=== PATIENT | female | born 1980 | race Two or more races ===

== ENCOUNTER 2025-09-10 06:56 | Emergency (ER) | payer MEDICAID, OTHER ==
[~2025-09-10] VITALS: Ht 152.4 cm; Wt 50.3 kg
[2025-09-10] MEDS ORDERED: IBUP1TAB5 PO (07:45)
[2025-09-10] MEDS ORDERED: PRED20TA2 PO (07:45)
[2025-09-10] MEDS ORDERED: AZIT-43 PO (07:45)
[2025-09-10] MEDS ORDERED: PROM1SOL4 PO (07:45)
--- NOTE | 2025-09-10 07:45 | ED.PDOC ---
SOB-HPI HPI Comments See triage note Chief Complaint: Flu like Time Seen by MD: 07:18 Reviewed notes: Nurses Notes, Medications, Allergies Information Source: Patient Mode of Arrival: Ambulatory Physical Exam General Appearance: No Apparent Distress, Normal HEENT: Normal ENT Inspection, Pharynx Normal, TMs Normal Neck: Full Range of Motion, Non-Tender, Normal, Normal Inspection Respiratory: Chest Non-Tender, Lungs Clear, No Accessory Muscle Use, No Respiratory Distress, Normal Breath Sounds Cardiovascular: No Edema, No JVD, No Murmur, No Gallop, Normal Peripheral Pulses, Regular Rate/Rhythm Breast Exam: Deferred Gastrointestinal: No Organomegaly, Non Tender, No Pulsatile Mass, Normal Bowel Sounds, Soft Genitalia: Deferred Pelvic: Deferred Rectal: Deferred Extremities: No calf tenderness, Normal capillary refill, Normal inspection, Normal range of motion, Non-tender, No pedal edema Musculoskeletal : Apperance: Normal Neurologic: Alert, credit control clerk II-XII nml as Tested, No Motor Deficits, Normal Affect, Normal Mood, No Sensory Deficits Cerebellar Function: Normal Reflexes: Normal Skin: Dry, Normal Color, Warm Lymphatic: No Adenopathy Was a procedure done? Was a procedure done?: No Differential Dx Differential Diagnosis: URI X-Ray, Labs, Meds, VS Vital Signs Date Time Temp Pulse Resp B/P (MAP) Pulse Ox O2 Delivery O2 Flow Rate FiO2 09/10/25 08:10 98 17 98 Room Air 09/10/25 08:10 98.2 98 16 142/90 (107) 98 98.2 09/10/25 06:59 97.6 105 18 144/92 97 97.6 X-Ray, Labs, Meds, VS Comment The patient is overall well-appearing nontoxic on exam. On physical exam, respirations even and unlabored, clear to auscultation bilaterally. Oxygen stable on room air. Did not have any focal lung findings and therefore chest x-ray was not indicated during this exam Low suspicion of strep pharyngitis given physical exam findings and patient's presenting symptoms No signs of meningismus on exam Overall, the patient is well hydrated and nontoxic. Plan for symptomatic control for fever and pain as needed. The patient was able to tolerate p.o. intake in the ED. at this time, patient is safe for discharge home. The exam findings and plan discussed. We will discharge home with PCP follow up and strict return precautions. Discussed that cough can linger up to 6 weeks after viral URI Supportive care and return precautions discussed Recommended vitamin C, rest, handwashing, and symptomatic care. Expect 2-week course with possibly of cough lingering up to 6 weeks. Nonpharmacological remedies for fluids has been recommended as well Time of 1ST Reevaluation: 07:40 Reevaluation 1ST: Improved Patient Education/Counseling: Diagnosis, Treatment Family Education/Counseling: Diagnosis, Treatment SEPSIS Sepsis Screen Date sepsis recognized/suspect: Sep 10, 2025 Time Sepsis recognized/suspect: 702 Recent Procedure: No On Antibiotic Therapy: No Respiratory Rate >20: No Heart Rate >90: No Temp<36 C (96.8 F) or >38.3 C: No SBP <90 or MAP <65 mmHG: No New Acute Mental Status Change: No Is the patient on CPAP, BIPAP,: No Vital Signs Date Time Temp Pulse Resp B/P (MAP) Pulse Ox O2 Delivery O2 Flow Rate FiO2 09/10/25 08:10 98 17 98 Room Air 09/10/25 08:10 98.2 98 16 142/90 (107) 98 98.2 09/10/25 06:59 97.6 105 18 144/92 97 97.6 Departure 1 Departure Time of Disposition: 07:45 Impression: Primary Impression: Viral syndrome Disposition: HOME / SELF CARE / HOMELESS Condition: Stable e-Prescriptions Ibuprofen Micronized (Ibuprofen) 600 Mg Tab 600 MG PO TIDPRN PRN for 10 Days, #30 TAB 0 Refills Prov: GERMANIA LAU NP 09/10/25 Promethazine-Dm (Promethazine Dm 6.25-15 mg/5Ml) 1 Claire Claire 5 ML PO TIDPRN PRN for 10 Days, #150 ML 0 Refills Prov: GERMANIA LAU NP 09/10/25 Prednisone (Prednisone) 20 Mg Tab 40 MG PO DAILY for 5 Days, #10 TAB 0 Refills Prov: GERMANIA LAU NP 09/10/25 Azithromycin (Azithromycin) 250 Mg Tab 250 MG PO DAILY MDD 500 for 5 Days, #6 TAB 0 Refills 2 TABLETS ORALLY ON DAY ONE, THEN 1 TABLET ORALLY DAILY FOR 4 DAYS Prov: GERMANIA LAU NP 09/10/25 Critical Care Note Critical Care Time?: No Stability Stability form required: No Heart Score Heart Score: Heart Score Response (Comments) Value History N/A 0 EKG N/A 0 Age N/A 0 Risk Factors N/A 0 Troponin N/A 0 Total 0 GERMANIA LAU NP Sep 10, 2025 07:45
[2025-09-10 08:10] VITALS: BP 142/90; PULSE 98; RESP 17; TEMP 98.2; O2SAT 98
== END 2025-09-10 08:13 | disposition home or self-care (01) ==
LOC: ER 06:56
DX: B34.9 Viral infection, unspecified (principal); Z79.899 Other long term (current) drug therapy
CPT/HCPCS: 99283; J7030